=== PATIENT | male | born 1940 | race Caucasian/White ===

== ENCOUNTER 2016-06-15 21:49 | Emergency (ER) | payer MEDICARE, OTHER | END 2016-06-15 23:05 | disposition home or self-care (01) | LOC: MADERS 21:49 | DX: R33.9 Retention of urine, unspecified (principal); J06.9 Acute upper respiratory infection, unspecified; I10 Essential (primary) hypertension; E11.9 Type 2 diabetes mellitus without complications; E05.90 Thyrotoxicosis, unspecified without thyrotoxic crisis or storm; E78.5 Hyperlipidemia, unspecified | CPT/HCPCS: 51702 ==

== ENCOUNTER 2016-06-16 12:16 | Emergency (ER) | payer MEDICARE, OTHER ==
[2016-06-16 13:07] LABS: Bilirubin Negative (Negative); Blood, Urine Moderate (Negative); Clarity Clear (Clear); Glucose, Urine (Dipstick) Negative (Negative); Leukocyte Negative (Negative); Nitrite Negative (Negative); Protein, Urine (Dipstick) Negative (Neg-Trace); Specific Gravity, Urine 1.015 (1.005-1.030); Urobilinogen 0.2 mg/dL (0.2-1.0)
[2016-06-16 13:09] LABS: Renal Epithelial 0-3 HPF (0-3); Squamous Epithelial 0-3 HPF (0-3); Transitional Epithelial 0-3 HPF (0-3)
[2016-06-16 13:10] LABS: Bacteria/HPF Rare-Few HPF (None Seen)
[2016-06-16] MEDS ORDERED: Ciprofloxacin 500 MG TAB ONE (13:19)
== END 2016-06-16 13:25 | disposition home or self-care (01) ==
LOC: MADERS 12:16
DX: R33.9 Retention of urine, unspecified (principal); N39.0 Urinary tract infection, site not specified; E11.9 Type 2 diabetes mellitus without complications; I10 Essential (primary) hypertension; E78.5 Hyperlipidemia, unspecified; Z79.82 Long term (current) use of aspirin; Z79.02 Long term (current) use of antithrombotics/antiplatelets; Z79.891 Long term (current) use of opiate analgesic; Z79.899 Other long term (current) drug therapy; Z79.4 Long term (current) use of insulin
CPT/HCPCS: 51702; 81003; 81015; 87086

== ENCOUNTER 2016-10-30 12:57 | Outpatient (CLI) | payer MEDICARE, OTHER ==
[2016-10-30 13:46] LABS: Hemoglobin 12.3 g/dL (14.0-18.0); Mean Corpuscular HGB CONC 33.4 g/dL (32.0-36.0); Mean Corpuscular Hemoglobin 31.9 pg (27.0-31.0); Mean Corpuscular Volume 95.4 fl (80.0-94.0); Mean Platelet Volume 8.2 fL (7.4-10.4); Platelet Count 201 thou/uL (130-400); RBC Distribution Width 12.8 % (11.5-14.5); Red Blood Cell (RBC) Count 3.87 mill/uL (4.70-6.10); White Blood Cell (WBC) Count 8.9 thou/uL (4.8-10.8)
[2016-10-30 13:47] LABS: PTT 29.6 SEC (22.9-36.1); Prothrombin Time 12.9 SEC (12.0-14.7)
[2016-10-30 13:57] LABS: ALT (SGPT) 23 U/L (8-55); AST (SGOT) 17 U/L (5-34); Albumin 3.7 g/dL (3.4-4.8); Alkaline Phosphatase 115 U/L (40-150); Anion Gap 15 mmol/L (10-20); BUN (Urea Nitrogen) 28 mg/dL (8.4-25.7); Bilirubin, Total 0.3 mg/dL (0.2-1.2); Calc. Creatinine Clearance 0 mL/min (70-130); Calcium 9.2 mg/dL (7.8-10.44); Carbon Dioxide 22 mmol/L (23-31); Chloride 105 mmol/L (98-107); Cholesterol 132 mg/dl (< 200 Desired); Estimated GFR-MDRD 54; Globulin 3.2 g/dL (2.4-3.5); Glucose 412 mg/dL (83-110); HDL Cholesterol 33 mg/dL (>60 Neg Risk); LDL Cholesterol, Calculated 47 mg/dL; Potassium 4.9 mmol/L (3.5-5.1); Protein, Total 6.9 g/dL (5.8-8.1); Sodium 137 mmol/L (136-145); Triglycerides 258 mg/dL (Less than 150)
== END 2016-10-30 12:58 | disposition home or self-care (01) ==
LOC: MADLAB 12:57
PROVIDERS: ATTEND Internal Medicine Cardiovascular Disease
DX: Z01.810 Encounter for preprocedural cardiovascular examination (principal); R06.02 Shortness of breath
CPT/HCPCS: 36415; 80053; 80061; 85027; 85610; 85730

== ENCOUNTER 2017-07-06 18:31 | Emergency (ER) | payer MEDICARE | END 2017-07-06 19:14 | disposition home or self-care (01) | LOC: MADERS 18:31 | DX: I87.9 Disorder of vein, unspecified (principal); E11.9 Type 2 diabetes mellitus without complications; E78.5 Hyperlipidemia, unspecified; E05.90 Thyrotoxicosis, unspecified without thyrotoxic crisis or storm; I10 Essential (primary) hypertension; Z79.4 Long term (current) use of insulin; Z79.899 Other long term (current) drug therapy; Z79.891 Long term (current) use of opiate analgesic; Z79.82 Long term (current) use of aspirin | CPT/HCPCS: 99283 ==

== ENCOUNTER 2017-07-16 23:48 | Emergency (ER) | payer MEDICARE ==
[2017-07-17] MEDS ORDERED: Sterile Water 10 ML ONE
== END 2017-07-17 00:28 | disposition home or self-care (01) ==
LOC: MADERS 23:48
DX: N99.89 Other postprocedural complications and disorders of genitourinary system (principal); R33.9 Retention of urine, unspecified; E11.9 Type 2 diabetes mellitus without complications; E21.3 Hyperparathyroidism, unspecified; I10 Essential (primary) hypertension; Z79.82 Long term (current) use of aspirin; Z79.4 Long term (current) use of insulin; Z79.899 Other long term (current) drug therapy
CPT/HCPCS: 51703; A4216

== ENCOUNTER 2017-12-13 20:45 | Emergency (ER) | payer MEDICARE ==
[~2017-12-13 20:45] MED LIST: Sterile Water Irrigation 250 ML BOT ONE
[2017-12-13 21:19] LABS: #Basophils 0.1 thou/uL (0.0-0.2); #Eosinphils 0.4 thou/uL (0.0-0.7); #Lymphocytes 2.2 thou/uL (1.20-3.40); #Monocytes 0.6 thou/uL (0.11-0.59); #Neutrophils 7.5 thou/uL (1.40-6.50); %Basophils 0.9 % (0.0-1.0); %Eosinophils 3.6 % (0.0-10.0); %Lymphocytes 20.7 % (21.0-51.0); %Monocytes 5.3 % (0.0-10.0); %Neutrophils 69.5 % (42.0-75.0); Hemoglobin 12.2 g/dL (14.0-18.0); Mean Corpuscular HGB CONC 34.9 g/dL (32.0-36.0); Mean Corpuscular Hemoglobin 31.9 pg (27.0-31.0); Mean Corpuscular Volume 91.6 fL (78.0-98.0); Mean Platelet Volume 7.7 fL (7.4-10.4); Platelet Count 265 thou/uL (130-400); RBC Distribution Width 11.9 % (11.5-14.5); Red Blood Cell (RBC) Count 3.81 mill/uL (4.70-6.10); White Blood Cell (WBC) Count 10.8 thou/uL (4.8-10.8)
[2017-12-13 21:22] LABS: Bilirubin Negative (Negative); Blood, Urine Moderate (Negative); Clarity Hazy (Clear); Glucose, Urine (Dipstick) 500 mg/dL (Negative); Leukocyte Small (Negative); Nitrite Negative (Negative); Protein, Urine (Dipstick) 30 mg/dL (Neg-Trace); Urobilinogen 0.2 mg/dL (0.2-1.0)
[2017-12-13 21:26] LABS: RBC/HPF GREATER THAN 50-TNTC HPF (0-3)
[2017-12-13 21:27] LABS: Bacteria/HPF None Seen HPF (None Seen)
[2017-12-13 21:27] LABS: INR-International Normal Ratio 0.9; Prothrombin Time 12.2 SEC (12.0-14.7)
[2017-12-13 21:46] LABS: ALT (SGPT) 20 U/L (8-55); AST (SGOT) 15 U/L (5-34); Albumin 3.8 g/dL (3.4-4.8); Alkaline Phosphatase 129 U/L (40-150); Anion Gap 14 mmol/L (10-20); BUN (Urea Nitrogen) 22 mg/dL (8.4-25.7); Bilirubin, Total 0.3 mg/dL (0.2-1.2); Calc. Creatinine Clearance 0 mL/min (70-130); Calcium 9.4 mg/dL (7.8-10.44); Carbon Dioxide 23 mmol/L (23-31); Chloride 104 mmol/L (98-107); Estimated GFR-MDRD 65; Glucose 347 mg/dL (83-110); Potassium 4.6 mmol/L (3.5-5.1); Protein, Total 6.8 g/dL (5.8-8.1); Sodium 136 mmol/L (136-145)
[2017-12-13] MEDS ORDERED: Cephalexin 500 MG CAP ONE (22:01)
== END 2017-12-13 22:11 | disposition home or self-care (01) ==
LOC: MADERS 20:45
DX: N30.01 Acute cystitis with hematuria (principal); E11.9 Type 2 diabetes mellitus without complications; E05.90 Thyrotoxicosis, unspecified without thyrotoxic crisis or storm; E78.5 Hyperlipidemia, unspecified; I10 Essential (primary) hypertension; Z79.899 Other long term (current) drug therapy; Z79.82 Long term (current) use of aspirin
CPT/HCPCS: 36415; 51702; 80053; 81003; 81015; 85025; 85610

== ENCOUNTER 2018-11-10 20:35 | Emergency (ER) | payer MEDICARE ==
[~2018-11-10 20:35] MED LIST changes: +Sodium Chloride Irrig Solution 250 ML BOT ONE; -Sterile Water Irrigation 250 ML BOT ONE
--- NOTE | 2018-11-10 21:40 | RAD ---
XR Hand Rt 3 View STANDARD: 11/10/2018 8:56 PM CLINICAL INDICATION: Hand laceration COMPARISON: None. TECHNIQUE: 3 views. Laterality: Right hand. FINDINGS: Bones: No acute fracture or subluxation demonstrated. 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 Soft Tissue: No radiopaque foreign body is evident.. IMPRESSION: No acute fracture or subluxation demonstrated. No radiopaque foreign body demonstrated..
[2018-11-10] MEDS ORDERED: Lidocaine 1% 20 ML MDV ONE (21:44)
== END 2018-11-10 22:16 | disposition home or self-care (01) ==
LOC: MADERS 20:35
DX: S61.411A Laceration without foreign body of right hand, initial encounter (principal); E11.9 Type 2 diabetes mellitus without complications; E05.90 Thyrotoxicosis, unspecified without thyrotoxic crisis or storm; E78.5 Hyperlipidemia, unspecified; I10 Essential (primary) hypertension; Z79.899 Other long term (current) drug therapy; Z79.4 Long term (current) use of insulin; Z79.82 Long term (current) use of aspirin; W26.8XXA Contact with other sharp object(s), not elsewhere classified, initial encounter
CPT/HCPCS: 12001; J2001

== ENCOUNTER 2020-02-25 18:04 | Emergency (ER) | payer MEDICARE ==
[2020-02-25] MEDS ORDERED: Sterile Water 10 ML ONE (18:34)
[2020-02-25] MEDS ORDERED: CEFAZOLIN 1 GM VIAL ONE (18:34)
[2020-02-25 18:53] LABS: #Basophils 0.1 thou/uL (0.0-0.2); #Eosinphils 0.3 thou/uL (0.0-0.7); #Monocytes 0.6 thou/uL (0.11-0.59); #Neutrophils 6.7 thou/uL (1.40-6.50); %Basophils 0.7 % (0.0-1.0); %Eosinophils 2.8 % (0.0-10.0); %Lymphocytes 20.7 % (21.0-51.0); %Monocytes 6.2 % (0.0-10.0); %Neutrophils 69.7 % (42.0-75.0); Hemoglobin 12.4 g/dL (14.0-18.0); Mean Corpuscular HGB CONC 34.3 g/dL (32.0-36.0); Mean Corpuscular Hemoglobin 31.2 pg (27.0-31.0); Mean Corpuscular Volume 90.9 fL (78.0-98.0); Mean Platelet Volume 6.7 fL (7.4-10.4); Platelet Count 280 thou/uL (130-400); RBC Distribution Width 12.3 % (11.5-14.5); Red Blood Cell (RBC) Count 3.97 mill/uL (4.70-6.10); White Blood Cell (WBC) Count 9.7 thou/uL (4.8-10.8)
[2020-02-25 19:02] LABS: INR-International Normal Ratio 0.9
[2020-02-25 19:03] LABS: PTT 29.2 sec (22.9-36.1)
[2020-02-25 19:10] LABS: Anion Gap 18 mmol/L (10-20); BUN (Urea Nitrogen) 23 mg/dL (8.4-25.7); Calc. Creatinine Clearance 0 mL/min (70-130); Carbon Dioxide 21 mmol/L (23-31); Chloride 102 mmol/L (98-107); Glucose 356 mg/dL (83-110); Potassium 4.7 mmol/L (3.5-5.1); Sodium 136 mmol/L (136-145)
--- NOTE | 2020-02-25 20:25 | RAD ---
THREE VIEWS OF THE LEFT HAND: 02/25/20 HISTORY: Laceration of the index finger and thumb after a table saw injury. FINDINGS: Three views of the left hand shows comminuted fractures of the distal phalanx and middle phalanx of t he index finger. There appears to be disruption of the DIP joint of the index finger. Surrounding sof t tissue swelling is seen. There is soft tissue swelling of the thumb without underlying osseous abno rmality. Moderate degenerative changes are seen in the first CMC joint with mild degenerative changes in the interphalangeal joints of the fingers. IMPRESSION: Comminuted fractures of the distal phalanx and middle phalanx of the index finger with significant di sruption of the DIP joint of the index finger. POS: HARESHA
== END 2020-02-25 19:45 | disposition short-term general hospital (02) ==
LOC: MADERS 18:04
DX: S62.631B Displaced fracture of distal phalanx of left index finger, initial encounter for open fracture (principal); S62.621B Displaced fracture of middle phalanx of left index finger, initial encounter for open fracture; S61.012A Laceration without foreign body of left thumb without damage to nail, initial encounter; E11.9 Type 2 diabetes mellitus without complications; E78.5 Hyperlipidemia, unspecified; I10 Essential (primary) hypertension; X58.XXXA Exposure to other specified factors, initial encounter
CPT/HCPCS: 36415; 80048; 85025; 85610; 85730; 93005; 96372; J0690

== ENCOUNTER 2020-06-22 11:35 | Outpatient (CLI) | payer MEDICARE | END 2020-06-22 11:36 | disposition home or self-care (01) | LOC: MADRAD 11:35 | PROVIDERS: ATTEND Pain Medicine Pain Medicine | DX: M25.552 Pain in left hip (principal); M54.17 Radiculopathy, lumbosacral region; M46.1 Sacroiliitis, not elsewhere classified; M47.816 Spondylosis without myelopathy or radiculopathy, lumbar region; M16.12 Unilateral primary osteoarthritis, left hip | CPT/HCPCS: 72100 ==

== ENCOUNTER 2020-09-25 06:08 | Emergency (ER) | payer MEDICARE ==
[2020-09-25] MEDS ORDERED: Morphine 4 MG/ML VIAL ONE (07:09)
[2020-09-25] MEDS ORDERED: Morphine 2 MG/ML VIAL ONE (07:10)
[2020-09-25 07:27] LABS: #Basophils 0.1 thou/uL (0.0-0.2); #Eosinphils 0.4 thou/uL (0.0-0.7); #Lymphocytes 1.5 thou/uL (1.20-3.40); #Monocytes 0.5 thou/uL (0.11-0.59); %Basophils 0.8 % (0.0-1.0); %Eosinophils 5.8 % (0.0-10.0); %Lymphocytes 19.9 % (21.0-51.0); %Neutrophils 66.5 % (42.0-75.0); Hemoglobin 11.7 g/dL (14.0-18.0); Mean Corpuscular HGB CONC 31.3 g/dL (32.0-36.0); Mean Corpuscular Hemoglobin 29.1 pg (27.0-31.0); Mean Corpuscular Volume 93.2 fL (78.0-98.0); Mean Platelet Volume 7.7 fL (7.4-10.4); Platelet Count 232 thou/uL (130-400); RBC Distribution Width 12.8 % (11.5-14.5); Red Blood Cell (RBC) Count 4.01 mill/uL (4.70-6.10); White Blood Cell (WBC) Count 7.5 thou/uL (4.8-10.8)
[2020-09-25 07:45] LABS: ALT (SGPT) 14 U/L (8-55); AST (SGOT) 10 U/L (5-34); Albumin 3.5 g/dL (3.4-4.8); Alkaline Phosphatase 112 U/L (40-110); Anion Gap 13 mmol/L (10-20); BUN (Urea Nitrogen) 18 mg/dL (8.4-25.7); Bilirubin, Total 0.4 mg/dL (0.2-1.2); CK (CPK) 112 U/L (30-200); Calc. Creatinine Clearance 0 mL/min (70-130); Carbon Dioxide 22 mmol/L (23-31); Chloride 107 mmol/L (98-107); Globulin 3.1 g/dL (2.4-3.5); Glucose 216 mg/dL (83-110); Potassium 4.4 mmol/L (3.5-5.1); Protein, Total 6.6 g/dL (5.8-8.1); Sodium 138 mmol/L (136-145)
[2020-09-25] MEDS ORDERED: Sodium Chloride 0.9% 100 ML ONE (08:38)
[2020-09-25] MEDS ORDERED: Insulin Regular 300 UNITS/3 ML VIAL ONE (08:38)
== END 2020-09-25 09:44 | disposition home or self-care (01) ==
LOC: MADERS 06:08
DX: S46.212A Strain of muscle, fascia and tendon of other parts of biceps, left arm, initial encounter (principal); E78.5 Hyperlipidemia, unspecified; E11.9 Type 2 diabetes mellitus without complications; I10 Essential (primary) hypertension; E05.90 Thyrotoxicosis, unspecified without thyrotoxic crisis or storm; X58.XXXA Exposure to other specified factors, initial encounter
CPT/HCPCS: 73080; 80053; 82550; 85025; J2270; 36415; 96374; J1815; J3490

== ENCOUNTER 2020-11-17 18:57 | Emergency (ER) | payer MEDICARE ==
[2020-11-17] MEDS ORDERED: Morphine 4 MG/ML VIAL ONE (21:11)
== END 2020-11-17 21:32 | disposition home or self-care (01) ==
LOC: MADERS 18:57
DX: S73.102A Unspecified sprain of left hip, initial encounter (principal); E78.5 Hyperlipidemia, unspecified; E11.9 Type 2 diabetes mellitus without complications; I10 Essential (primary) hypertension; E05.90 Thyrotoxicosis, unspecified without thyrotoxic crisis or storm; W05.0XXA Fall from non-moving wheelchair, initial encounter
CPT/HCPCS: 72100; 72170; 96374; J2270

== ENCOUNTER 2021-02-13 20:07 | Emergency (ER) | payer MEDICARE ==
[2021-02-13 23:25] LABS: #Basophils 0.1 thou/uL (0.0-0.2); #Eosinphils 0.3 thou/uL (0.0-0.7); #Lymphocytes 2.3 thou/uL (1.20-3.40); #Monocytes 0.4 thou/uL (0.11-0.59); #Neutrophils 7.1 thou/uL (1.40-6.50); %Basophils 0.9 % (0.0-1.0); %Eosinophils 2.7 % (0.0-10.0); %Lymphocytes 22.8 % (21.0-51.0); %Monocytes 3.8 % (0.0-10.0); %Neutrophils 69.8 % (42.0-75.0); Hemoglobin 12.2 g/dL (14.0-18.0); Mean Corpuscular HGB CONC 31.6 g/dL (32.0-36.0); Mean Corpuscular Hemoglobin 28.8 pg (27.0-31.0); Mean Corpuscular Volume 91.2 fL (78.0-98.0); Mean Platelet Volume 6.5 fL (7.4-10.4); Platelet Count 379 thou/uL (130-400); RBC Distribution Width 12.1 % (11.5-14.5); Red Blood Cell (RBC) Count 4.22 mill/uL (4.70-6.10); White Blood Cell (WBC) Count 10.1 thou/uL (4.8-10.8)
[2021-02-13 23:33] LABS: PTT 31.6 sec (22.9-36.1)
[2021-02-13 23:42] LABS: ALT (SGPT) 12 U/L (8-55); AST (SGOT) 14 U/L (5-34); Albumin 4.1 g/dL (3.4-4.8); Alkaline Phosphatase 135 U/L (40-110); Anion Gap 16 mmol/L (10-20); BUN (Urea Nitrogen) 22 mg/dL (8.4-25.7); Bilirubin, Total 0.3 mg/dL (0.2-1.2); Calc. Creatinine Clearance 0 mL/min (70-130); Calcium 9.9 mg/dL (7.8-10.44); Carbon Dioxide 20 mmol/L (23-31); Chloride 99 mmol/L (98-107); Globulin 4.2 g/dL (2.4-3.5); Glucose 208 mg/dL (83-110); Potassium 4.9 mmol/L (3.5-5.1); Protein, Total 8.3 g/dL (5.8-8.1); Sodium 130 mmol/L (136-145)
[2021-02-14 00:02] LABS: Bilirubin Negative (Negative); Blood, Urine Trace (Negative); Clarity Clear (Clear); Glucose, Urine (Dipstick) Negative (Negative); Ketone, Urine Negative (Negative); Leukocyte Negative (Negative); Nitrite Negative (Negative); Protein, Urine (Dipstick) Negative (Neg-Trace); Urobilinogen 0.2 mg/dL (Less than 2); pH, Urine 6.5 (5.0-9.0)
[2021-02-14 00:03] LABS: RBC/HPF 0-3 HPF (0-3); Squamous Epithelial 0-3 HPF (0-3); WBC/HPF None Seen HPF (0-3)
[2021-02-14] MEDS ORDERED: Orphenadrine Citrate 60 MG/2 ML VIAL ONE (00:32)
[2021-02-14] MEDS ORDERED: Lorazepam 1 MG TAB ONE (01:42)
[2021-02-14 01:49] LABS: Hemoglobin 12.5 g/dL (14.0-18.0)
[2021-02-14] MEDS ORDERED: Morphine 4 MG/ML VIAL ONE (02:32)
[2021-02-14] MEDS ORDERED: HYDROcodone/Acetaminophen 5/325 mg Tablet ONE (04:04)
[2021-02-14 04:52] LABS: Hemoglobin 11.7 g/dL (14.0-18.0)
[2021-02-14 05:42] LABS: SARS-CoV-2 NAA Rapid Test Not Detected (NotDetected)
[2021-02-14 06:17] LABS: Clarity Turbid (Clear)
[2021-02-14 06:25] LABS: Leukocyte Unable to Interpret (Negative)
[2021-02-14 06:26] LABS: Bilirubin Unable to Interpret (Negative); Blood, Urine Unable to Interpret (Negative); Glucose, Urine (Dipstick) Unable to Interpret mg/dL (Negative); Ketone, Urine Unable to Interpret mg/dL (Negative); Nitrite Unable to Interpret (Negative); Protein, Urine (Dipstick) Unable to Interpret mg/dL (Neg-Trace); Urobilinogen UNABLE TO INTERPRET mg/dL (Less than 2)
== END 2021-02-14 04:42 | disposition short-term general hospital (02) ==
LOC: MADERS 20:07
DX: R31.9 Hematuria, unspecified (principal); Z20.822 Contact with and (suspected) exposure to COVID-19
CPT/HCPCS: 80053; 81003; 81015; 85014; 85018; 85025; 85610; 85730; 86850; 86900; 86901; 96372; 96374; J2270; J2360; U0002

== ENCOUNTER 2021-03-08 18:35 | Emergency (ER) | payer MEDICARE ==
[2021-03-08 19:00] LABS: #Basophils 0.1 thou/uL (0.0-0.2); #Eosinphils 0.1 thou/uL (0.0-0.7); #Lymphocytes 1.3 thou/uL (1.20-3.40); #Monocytes 0.5 thou/uL (0.11-0.59); #Neutrophils 5.9 thou/uL (1.40-6.50); %Basophils 0.6 % (0.0-1.0); %Eosinophils 0.8 % (0.0-10.0); %Lymphocytes 16.9 % (21.0-51.0); %Monocytes 6.1 % (0.0-10.0); %Neutrophils 75.7 % (42.0-75.0); Hemoglobin 10.6 g/dL (14.0-18.0); Mean Corpuscular HGB CONC 30.8 g/dL (32.0-36.0); Mean Corpuscular Hemoglobin 28.3 pg (27.0-31.0); Mean Corpuscular Volume 91.9 fL (78.0-98.0); Mean Platelet Volume 6.2 fL (7.4-10.4); Platelet Count 382 thou/uL (130-400); RBC Distribution Width 14.5 % (11.5-14.5); Red Blood Cell (RBC) Count 3.74 mill/uL (4.70-6.10); White Blood Cell (WBC) Count 7.8 thou/uL (4.8-10.8)
[2021-03-08 19:16] LABS: Bilirubin Negative (Negative); Blood, Urine Moderate (Negative); Glucose, Urine (Dipstick) Negative (Negative); Ketone, Urine Negative (Negative); Leukocyte Large (Negative); Nitrite Negative (Negative); Protein, Urine (Dipstick) 100 mg/dL (Neg-Trace); Specific Gravity, Urine 1.025 (1.005-1.030)
[2021-03-08 19:20] LABS: ALT (SGPT) 16 U/L (8-55); AST (SGOT) 18 U/L (5-34); Albumin 3.7 g/dL (3.4-4.8); Alkaline Phosphatase 105 U/L (40-110); Anion Gap 13 mmol/L (10-20); BUN (Urea Nitrogen) 16 mg/dL (8.4-25.7); Bilirubin, Total 0.7 mg/dL (0.2-1.2); CK (CPK) 200 U/L (30-200); Calc. Creatinine Clearance 0 mL/min (70-130); Calcium 10.2 mg/dL (7.8-10.44); Carbon Dioxide 25 mmol/L (23-31); Chloride 103 mmol/L (98-107); Globulin 3.5 g/dL (2.4-3.5); Glucose 220 mg/dL (83-110); Potassium 4.2 mmol/L (3.5-5.1); Protein, Total 7.2 g/dL (5.8-8.1); Sodium 137 mmol/L (136-145)
[2021-03-08 19:22] LABS: Clarity Cloudy (Clear)
[2021-03-08 19:23] LABS: Bacteria/HPF 1+ HPF (None Seen); Other Microscopic Description C&S SET UP; Squamous Epithelial 0-3 HPF (0-3); WBC/HPF Greater Than 50 HPF (0-3); Yeast-Budding 1+ HPF (None Seen)
[2021-03-08] MEDS ORDERED: Sodium Chloride 0.9% 100 ML ONE (20:01)
[2021-03-08] MEDS ORDERED: cefTRIAXone\\ROCEPHIN 2 GM VIAL ONE (20:02)
[2021-03-08] MEDS ORDERED: Ziprasidone 20 MG VIAL ONE (22:31)
[2021-03-08] MEDS ORDERED: Sterile Water 10 ML ONE (22:32)
[2021-03-09] MEDS ORDERED: Sterile Water 10 ML ONE (00:58)
[2021-03-09] MEDS ORDERED: Ziprasidone 20 MG VIAL ONE (00:58)
== END 2021-03-09 01:27 | disposition home or self-care (01) ==
LOC: MADERS 18:35
DX: T83.511A Infection and inflammatory reaction due to indwelling urethral catheter, initial encounter (principal); N39.0 Urinary tract infection, site not specified; E86.0 Dehydration; F03.90 Unspecified dementia, unspecified severity, without behavioral disturbance, psychotic disturbance, mood disturbance, and anxiety; R45.6 Violent behavior; I10 Essential (primary) hypertension; E78.5 Hyperlipidemia, unspecified; E78.00 Pure hypercholesterolemia, unspecified; I25.10 Atherosclerotic heart disease of native coronary artery without angina pectoris; E11.9 Type 2 diabetes mellitus without complications; E03.9 Hypothyroidism, unspecified; M10.9 Gout, unspecified; Z79.4 Long term (current) use of insulin
CPT/HCPCS: 36415; 71045; 80053; 81003; 81015; 82550; 83605; 84484; 85025; 86140; 87086; 94760; 96365; 96368; 96372; J0696; J1956; J3486; J3490

== ENCOUNTER 2021-03-12 10:04 | Emergency (ER) | payer MEDICARE ==
[2021-03-12 10:37] LABS: Hemoglobin 9.6 g/dL (14.0-18.0); Mean Corpuscular HGB CONC 33.3 g/dL (32.0-36.0); Mean Corpuscular Hemoglobin 29.7 pg (27.0-31.0); Platelet Count 300 thou/uL (130-400); RBC Distribution Width 13.8 % (11.5-14.5); Red Blood Cell (RBC) Count 3.22 mill/uL (4.70-6.10); White Blood Cell (WBC) Count 8.4 thou/uL (4.8-10.8)
[2021-03-12 10:38] LABS: #Basophils 0.8 thou/uL (0.0-0.2); #Eosinphils 0.6 thou/uL (0.0-0.7); #Lymphocytes 0.9 thou/uL (1.20-3.40); #Monocytes 0.7 thou/uL (0.11-0.59); #Neutrophils 6.7 thou/uL (1.40-6.50); %Eosinophils 0.7 % (0.0-10.0); %Lymphocytes 10.8 % (21.0-51.0); %Monocytes 7.8 % (0.0-10.0); %Neutrophils 79.7 % (42.0-75.0); Mean Platelet Volume 6.7 fL (7.4-10.4)
[2021-03-12 10:44] LABS: ALT (SGPT) 14 U/L (8-55); AST (SGOT) 11 U/L (5-34); Albumin 3.3 g/dL (3.4-4.8); Alkaline Phosphatase 96 U/L (40-110); Anion Gap 11 mmol/L (10-20); BUN (Urea Nitrogen) 11 mg/dL (8.4-25.7); Bilirubin, Total 0.7 mg/dL (0.2-1.2); Calc. Creatinine Clearance 0 mL/min (70-130); Calcium 10.5 mg/dL (7.8-10.44); Carbon Dioxide 24 mmol/L (23-31); Chloride 103 mmol/L (98-107); Globulin 2.9 g/dL (2.4-3.5); Glucose 295 mg/dL (83-110); Potassium 3.8 mmol/L (3.5-5.1); Protein, Total 6.2 g/dL (5.8-8.1); Sodium 134 mmol/L (136-145)
[2021-03-12 11:20] LABS: Bilirubin Small (Negative); Blood, Urine Moderate (Negative); Glucose, Urine (Dipstick) 500 mg/dL (Negative); Ketone, Urine Negative (Negative); Leukocyte Small (Negative); Nitrite Negative (Negative); Protein, Urine (Dipstick) 100 mg/dL (Neg-Trace); Urobilinogen 0.2 mg/dL (Less than 2); pH, Urine 5.5 (5.0-9.0)
[2021-03-12 11:22] LABS: Clarity Cloudy (Clear); Specific Gravity, Urine 1.029 (1.002-1.036)
[2021-03-12 11:27] LABS: WBC/HPF Greater Than 50 HPF (0-3)
[2021-03-12 11:29] LABS: RBC/HPF 0-3 HPF (0-3); Squamous Epithelial 0-3 HPF (0-3)
[2021-03-12 11:30] LABS: Bacteria/HPF 2+ HPF (None Seen); Yeast-Budding 3+ HPF (None Seen); Yeast-Hyphae 1+ HPF (None Seen)
[2021-03-12] MEDS ORDERED: Levofloxacin 500 mg/D5W 100 ml Premix Bag ONE (11:51)
[2021-03-12 11:57] LABS: CKMB 2.7 ng/mL (0-6.6)
[2021-03-12 12:05] LABS: Magnesium 1.5 mg/dL (1.6-2.6)
[2021-03-12] MEDS ORDERED: Aspirin 300 MG Suppository ONE (12:13)
[2021-03-12] MEDS ORDERED: Magnesium 2 GM/50 ML BAG (IN WATER) ONE (12:49)
== END 2021-03-12 13:27 | disposition short-term general hospital (02) ==
LOC: MADERS 10:04
DX: S12.030A Displaced posterior arch fracture of first cervical vertebra, initial encounter for closed fracture (principal); R41.82 Altered mental status, unspecified; E83.51 Hypocalcemia; E83.42 Hypomagnesemia; E87.1 Hypo-osmolality and hyponatremia; R94.31 Abnormal electrocardiogram [ECG] [EKG]; E11.65 Type 2 diabetes mellitus with hyperglycemia; N39.0 Urinary tract infection, site not specified; I10 Essential (primary) hypertension; W05.0XXA Fall from non-moving wheelchair, initial encounter; E03.9 Hypothyroidism, unspecified; E78.00 Pure hypercholesterolemia, unspecified; E78.5 Hyperlipidemia, unspecified; M10.9 Gout, unspecified; E11.9 Type 2 diabetes mellitus without complications; Z79.4 Long term (current) use of insulin; Z79.82 Long term (current) use of aspirin; Z79.84 Long term (current) use of oral hypoglycemic drugs
CPT/HCPCS: 36415; 70450; 72125; 72128; 72131; 72192; 80053; 81003; 81015; 82553; 83735; 84484; 85025; 87086; 93005; 96365; 96367; J1956; J3475